=== PATIENT | male | born 1955 | race Caucasian/White ===

== ENCOUNTER 2017-01-14 13:42 | Emergency (ER) | payer MEDICAID ==
[~2017-01-14] VITALS: Ht 175.3 cm; Wt 94.8 kg
[2017-01-14 13:42] VITALS: BP 158/90
[~2017-01-14 13:42] MED LIST: NONE at this time
[2017-01-14 14:39] LABS: HEMATOCRIT 40.6 % (39.2-51.8); HEMOGLOBIN 13.7 g/dL (13.7-18.0); WHITE BLOOD COUNT 4.9 x10^3/uL (3.4-10)
[2017-01-14 14:51] LABS: ASPARTATE AMINO TRANSFERASE 20 U/L (15-37); BLOOD UREA NITROGEN 18 mg/dL (7-18)
== END 2017-01-14 15:13 | disposition home or self-care (01) ==
LOC: ED 14:29
DX: K62.5 Hemorrhage of anus and rectum (principal)
CPT/HCPCS: 36415; 80053; 83690; 85025; 99284